=== PATIENT | male | born 1950 | race Caucasian/White ===

== ENCOUNTER 2020-01-19 12:30 | Outpatient (CLI) | payer MEDICARE, SELFPAY ==
[2020-01-19 13:48] LABS: Thyroid Stimulating Hormone Reflex 3.41 u/IU/mL (0.36-3.74)
== END 2020-01-19 12:31 | disposition home or self-care (01) ==
LOC: CHSLAB 12:34
PROVIDERS: PCP Family Medicine; Visit Provider Family Medicine
DX: E78.5 Hyperlipidemia, unspecified (principal)
CPT/HCPCS: 36415; 84443

== ENCOUNTER 2020-03-22 09:49 | Outpatient (CLI) | payer MEDICARE, SELFPAY | END 2020-03-22 09:50 | disposition home or self-care (01) | LOC: CHSLAB 09:54 | PROVIDERS: PCP Family Medicine; Visit Provider Specialist | DX: C44.311 Basal cell carcinoma of skin of nose (principal) | CPT/HCPCS: 88305 ==

== ENCOUNTER 2020-12-20 11:12 | Outpatient (CLI) | payer MEDICARE, SELFPAY | END 2020-12-20 11:13 | disposition home or self-care (01) | LOC: CHSLAB 11:16 | PROVIDERS: PCP Family Medicine; Visit Provider Specialist | DX: B07.8 Other viral warts (principal) | CPT/HCPCS: 88305 ==

== ENCOUNTER 2021-03-21 10:24 | Outpatient (CLI) | payer MEDICARE, SELFPAY | END 2021-03-21 10:25 | disposition home or self-care (01) | PROVIDERS: PCP Family Medicine; Visit Provider Specialist | DX: L57.0 Actinic keratosis (principal) | CPT/HCPCS: 88305; 88342 ==

== ENCOUNTER 2021-04-19 08:54 | Outpatient (CLI) | payer MEDICARE, SELFPAY ==
[2021-04-19 09:10] LABS: Hematocrit 44.9 % (37.0-46.0); Hemoglobin 15.4 g/dL (12.4-15.3); Mean Corpuscular HGB Conc 34.3 g/dL (32.0-36.0); Mean Corpuscular Hemoglobin 33.3 pg (27.0-31.0); Mean Platelet Volume 9.6 fl (8.7-11.0); Platelet Count Result 208 K/mm3 (150-420); Red Blood Count 4.63 M/mm3 (4.70-6.10); Red Cell Distribution Width 11.9 % (11.6-14.4); White Blood Count 6.1 K/mm3 (4.8-10.8)
[2021-04-19 09:50] LABS: Anion Gap 13 mmol/L (8-16); Blood Urea Nitrogen 15 mg/dL (7-18); Carbon Dioxide 24 mmol/L (21-32); Chloride 103 mmol/L (98-108); Potassium 4.2 mmol/L (3.5-5.1); Sodium 140 mmol/L (136-145)
[2021-04-19 09:51] LABS: Alanine Aminotransferase 52 U/L (16-63); Albumin Level 3.8 g/dL (3.4-5.0); Alkaline Phosphatase 79 U/L (46-116); Aspartate Amino Transferase 45 U/L (15-37); Bilirubin,Total 2.4 mg/dL (0.00-1.00); Calcium 8.5 mg/dL (8.5-10.1); Cholesterol 144 mg/dL (0-200); Estimated Glomerular Filt Rate > 60; Glucose 107 mg/dL (70-99); HDL Direct 55 mg/dL (40-60); LDL Cholesterol Calculated 72 mg/dL (<130); Osmolality Calculated 290 mOsm/kg (285-295); Triglycerides 84 mg/dL (0-150)
[2021-04-19 09:52] LABS: Thyroid Stimulating Hormone Reflex 5.29 u/IU/mL (0.36-3.74)
[2021-04-19 09:53] LABS: Free T4 Free Thyroxine Reflex 1.08 ng/dL (0.76-1.46)
== END 2021-04-19 08:55 | disposition home or self-care (01) ==
LOC: CHSLAB 08:56
PROVIDERS: PCP Family Medicine; Visit Provider Family Medicine
DX: I10 Essential (primary) hypertension (principal); E11.9 Type 2 diabetes mellitus without complications
CPT/HCPCS: 36415; 80053; 80061; 84439; 84443; 85027

== ENCOUNTER 2021-06-20 08:12 | Outpatient (CLI) | payer MEDICARE, SELFPAY ==
[2021-06-20 09:23] LABS: Thyroid Stimulating Hormone 4.87 uIU/mL (0.36-3.74)
== END 2021-06-20 08:13 | disposition home or self-care (01) ==
LOC: CHSLAB 08:15
PROVIDERS: PCP Family Medicine; Visit Provider Family Medicine
DX: E03.9 Hypothyroidism, unspecified (principal)
CPT/HCPCS: 36415; 84443

== ENCOUNTER 2021-08-31 08:33 | Outpatient (CLI) | payer MEDICARE, SELFPAY ==
[2021-08-31 10:52] LABS: Thyroid Stimulating Hormone 1.93 uIU/mL (0.36-3.74)
== END 2021-08-31 08:34 | disposition home or self-care (01) ==
LOC: CHSLAB 08:36
PROVIDERS: PCP Family Medicine; Visit Provider Family Medicine
DX: E03.9 Hypothyroidism, unspecified (principal)
CPT/HCPCS: 36415; 84443

== ENCOUNTER 2022-07-04 10:08 | Outpatient (CLI) | payer MEDICARE, SELFPAY ==
[2022-07-04 10:52] LABS: Hemoglobin 14.8 g/dL (12.4-15.3); Mean Corpuscular HGB Conc 34.4 g/dL (32.0-36.0); Mean Corpuscular Hemoglobin 33.6 pg (27.0-31.0); Mean Corpuscular Volume 97.7 fL (78.0-102.0); Mean Platelet Volume 9.9 fl (8.7-11.0); Platelet Count Result 207 K/mm3 (150-420); Red Cell Distribution Width 11.9 % (11.6-14.4)
[2022-07-04 11:17] LABS: Alanine Aminotransferase 34 U/L (16-63); Albumin Level 3.8 g/dL (3.4-5.0); Alkaline Phosphatase 71 U/L (46-116); Anion Gap 7 mmol/L (8-16); Aspartate Amino Transferase 20 U/L (15-37); Bilirubin,Total 1.6 mg/dL (0.00-1.00); Blood Urea Nitrogen 21 mg/dL (7-18); Calcium 8.5 mg/dL (8.5-10.1); Carbon Dioxide 28 mmol/L (21-32); Chloride 103 mmol/L (98-108); Cholesterol 165 mg/dL (0-200); Estimated Glomerular Filt Rate > 60; Glucose 121 mg/dL (70-99); HDL Direct 56 mg/dL (40-60); LDL Cholesterol Calculated 92 mg/dL (<130); Osmolality Calculated 290 mOsm/kg (285-295); Prostate Specific Antigen 0.7 ng/mL (< OR = 4.0); Sodium 138 mmol/L (136-145); Total Protein 6.9 g/dL (6.4-8.2); Triglycerides 83 mg/dL (0-150)
== END 2022-07-04 10:09 | disposition home or self-care (01) ==
LOC: CHSLAB 10:13
PROVIDERS: PCP Family Medicine; Visit Provider Family Medicine
DX: R35.1 Nocturia (principal); E78.5 Hyperlipidemia, unspecified; E11.9 Type 2 diabetes mellitus without complications; E03.9 Hypothyroidism, unspecified; I10 Essential (primary) hypertension; Z12.5 Encounter for screening for malignant neoplasm of prostate
CPT/HCPCS: 36415; 80053; 80061; 84153; 84443; 85027; G0103

== ENCOUNTER 2023-07-08 09:44 | Outpatient (CLI) | payer MEDICARE, SELFPAY ==
[2023-07-08 10:00] LABS: Basophils Absolute Auto 0.04 K/mm3 (0.00-0.10); Basophils Percent Auto 0.6 % (0.0-1.0); Eosinophils Absolute Auto 0.15 K/mm3 (0.02-0.50); Eosinophils Percent Auto 2.1 % (1.0-6.0); Hematocrit 46.9 % (37.0-46.0); Hemoglobin 16.2 g/dL (12.4-15.3); Immature Granulocyte Absolute 0.02 K/mm3 (0.00-0.00); Immature Granulocyte Percent A 0.3 % (0.0-0.0); Lymphocytes Absolute Auto 1.79 K/mm3 (1.10-4.50); Lymphocytes Percent Auto 25.1 % (18.0-42.0); Mean Corpuscular HGB Conc 34.5 g/dL (32.0-36.0); Mean Corpuscular Volume 95.5 fL (78.0-102.0); Mean Platelet Volume 9.5 fl (8.7-11.0); Monocytes Absolute Auto 0.77 K/mm3 (0.10-0.90); Monocytes Percent Auto 10.8 % (2.0-11.0); Neutrophils Absolute Auto 4.4 K/mm3 (1.7-7.2); Neutrophils Percent Auto 61.1 % (50.0-70.0); Platelet Count Result 221 K/mm3 (150-420); Red Blood Count 4.91 M/mm3 (4.70-6.10); White Blood Count 7.1 K/mm3 (4.8-10.8)
[2023-07-08 10:35] LABS: Thyroid Stimulating Hormone Reflex 2.68 u/IU/mL (0.36-3.74)
[2023-07-08 10:37] LABS: Alanine Aminotransferase 34 U/L (16-63); Alkaline Phosphatase 70 U/L (46-116); Anion Gap 10 mmol/L (8-16); Aspartate Amino Transferase 27 U/L (15-37); Bilirubin,Total 2.9 mg/dL (0.00-1.00); Blood Urea Nitrogen 18 mg/dL (7-18); Calcium 8.8 mg/dL (8.5-10.1); Carbon Dioxide 29 mmol/L (21-32); Chloride 101 mmol/L (98-108); Cholesterol 163 mg/dL (0-200); Estimated Glomerular Filt Rate > 60; Glucose 127 mg/dL (70-99); HDL Direct 60 mg/dL (40-60); LDL Cholesterol Calculated 85 mg/dL (<130); Osmolality Calculated 293 mOsm/kg (285-295); Potassium 3.8 mmol/L (3.5-5.1); Prostate Specific Antigen 0.8 ng/mL (< OR = 4.0); Sodium 140 mmol/L (136-145); Total Protein 7.7 g/dL (6.4-8.2); Triglycerides 89 mg/dL (0-150)
== END 2023-07-08 09:45 | disposition home or self-care (01) ==
LOC: CHSLAB 09:48
PROVIDERS: PCP Family Medicine; Visit Provider Family Medicine
DX: R35.1 Nocturia (principal); E11.9 Type 2 diabetes mellitus without complications; E03.9 Hypothyroidism, unspecified; I10 Essential (primary) hypertension; Z12.5 Encounter for screening for malignant neoplasm of prostate
CPT/HCPCS: 36415; 80053; 80061; 83036; 84153; 84443; 85025; G0103

== ENCOUNTER 2024-07-22 10:41 | Outpatient (CLI) | payer MEDICARE, SELFPAY ==
[2024-07-22 10:59] LABS: Hematocrit 46.1 % (37.0-46.0); Hemoglobin 15.3 g/dL (12.4-15.3); Mean Corpuscular HGB Conc 33.2 g/dL (32-36); Mean Corpuscular Hemoglobin 31.9 pg (27.0-31.0); Mean Corpuscular Volume 96.2 fL (78.0-102.0); Mean Platelet Volume 9.2 fl (8.7-11.0); Platelet Count Result 222 K/mm3 (150-420); Red Blood Count 4.79 M/mm3 (4.70-6.10); Red Cell Distribution Width 11.9 % (11.6-14.4); White Blood Count 5.3 K/mm3 (4.8-10.8)
[2024-07-22 12:08] LABS: Band Neutrophils Percent 0 % (0-6); Lymphocytes Absolute Manual 1.11 K/mm3 (1.1-4.5); Lymphocytes Percent Manual 21 % (18-44); Monocytes Absolute Manual 0.84 K/mm3 (0.1-0.90); Monocytes Percent Manual 16 % (3-9); Neutrophils Absolute Manual 3.23 K/mm3 (1.3-6.7); Neutrophils Percent Manual 61 % (46-73); Total Cells Counted 100
[2024-07-22 12:09] LABS: Platelet Estimate Adequate (Adequate)
--- OUTSIDE RECORDS SUMMARY | 2024-07-22 12:16 | XMS_ITS | Clinical Summary ---
Author Organization [facility] Address [address] [place] [address] Care Team Providers Care Stage Director Name Role Phone Ha العراقي MD Unavailable Unavailabl e Allergies No known active allergies Medications atorvastatin 20 MG tablet Take 20 mg by mouth daily. Active levothyroxine 75 MCG tablet Take 75 mcg by mouth daily. Active aspirin 81 MG chewable tablet Chew 81 mg by mouth daily. Active chlorthalidone 25 MG tablet 07/08/2017 Active metoprolol tartrate 25 MG tablet 07/08/2017 Active Active Problems Problem Noted Date Diagnosed Date Precordial pain 03/03/2016 Essential hypertension 03/03/2016 Mixed hyperlipidemia 03/03/2016 Hypothyroidism Hyperlipidemia HTN (hypertension) Esophageal reflux Chest pain Family History Relation Status Comments Father Mother Social History Tobacco Use Types Packs/Day Years Used Date Smoking Tobacco: Former Cigars Smokeless Tobacco: Never Tobacco Cessation:Counseling Given: No Alcohol Use Standard Drinks/Week Comments No 0 (1 standard drink = 0.6 oz pur e alcohol) Sex and Gender Information Value Date Recorded Sex Assigned at Not on file Legal Sex Male 1:53 PM CDT Gender Identity Not on file Sexual Orientation Not on file Last Filed Vital Signs Vital Sign Reading Time Taken Comments Blood Pressure 154/78 12/17/2019 11:32 AM CDT Pulse 62 12/17/2019 11:32 AM CDT Temperature - - Respiratory Rate 16 12/17/2019 11:32 AM CDT Oxygen Saturation 97% 12/17/2019 11:32 AM CDT Inhaled Oxygen Concentration - - Weight 101.2 kg (223 lb) 12/17/2019 11:32 AM CDT Height 175.3 cm (5' 9 ) 12/17/2019 11:32 AM CDT Body Mass Index 32.93 12/17/2019 11:32 AM CDT Plan of Treatment Health Maintenance Due Date Last Done Comments Colorectal Cancer Screening Colonoscopy (10 Years) 1950 Hepatitis C 1968 DTaP, Tdap and Td Vaccines ( 1 - Tdap) 1969 Zoster Vaccines (1 of 2) 2000 AAA SCREENING 11/06/2015 Annual Medicare Wellness Visit 11/06/2015 Pneumococcal Vaccine: 65+ Ye ars (1 of 1 - PCV) 11/06/2015 COVID-19 Vaccine (1 - 2023-2 5 season) 2024 Influenza Adult (#1) 2024 RSV Immunization or 60+ Years (1 - 1-dose 75+ series) 2025 Meningococcal B Vaccine Aged Out No l onger eligible based on patient's age to complete this topic Meningococcal Vaccine Aged Out No romeo odalys eligible based on patient's age to complete this topic RSV Immunizations Under 20 Months Aged Out No longer eligible based on patient's age to complete this topic Insurance [employer] [place] Care Teams Stage Director Relationship Specialty Start Date End Date Ha العراقي MD [place] Rn Liaison CARDIOVASCULAR DISEASE 01/10/16
[2024-07-22 23:50] LABS: Alanine Aminotransferase 36 U/L (16-63); Albumin Level 4.2 g/dL (3.4-5.0); Alkaline Phosphatase 104 U/L (46-116); Anion Gap 10 mmol/L (4-12); Aspartate Amino Transferase 29 U/L (15-37); Bilirubin,Total 2.6 mg/dL (0.00-1.00); Blood Urea Nitrogen 20 mg/dL (7-18); Calcium 9.1 mg/dL (8.5-10.1); Carbon Dioxide 28 mmol/L (21-32); Chloride 101 mmol/L (98-108); Cholesterol 134 mg/dL (0-200); Estimated Glomerular Filt Rate > 60; Glucose 118 mg/dL (70-99); HDL Direct 59 mg/dL (40-60); LDL Cholesterol Calculated 61 mg/dL (<130); Osmolality Calculated 291 mOsm/kg (285-295); Potassium 3.7 mmol/L (3.5-5.1); Sodium 139 mmol/L (136-145); Total Protein 7.6 g/dL (6.4-8.2); Triglycerides 70 mg/dL (0-150)
== END 2024-07-22 10:42 | disposition home or self-care (01) ==
LOC: CHSLAB 10:44
PROVIDERS: PCP Family Medicine; Visit Provider Family Medicine
DX: E03.9 Hypothyroidism, unspecified (principal); I10 Essential (primary) hypertension
CPT/HCPCS: 36415; 80053; 80061; 84443; 85025

== ENCOUNTER 2024-07-27 09:48 | Outpatient (CLI) | payer MEDICARE, SELFPAY ==
--- NOTE | ~2024-07-27 | CT_ITS ---
CT Scan of the Chest without Contrast: Clinical Indication: Lung cancer screening, nicotine dependence Technique: Contiguous sections were acquired throughout the chest without intravenous contrast. Dose reduction technique was used on this scan by utilizing automated exposure control and iterative recon struction technique. The dose-length product (DLP) was 206.06 mGy-cm. Findings: There is no evidence of any significant mediastinal, hilar or axillary lymphadenopathy. Coronary joelle ry calcifications present. There is no evidence of pleural or pericardial effusion. The lungs are clear. No pulmonary nodules or infiltrates are noted. Images through the upper abdomen reveal no abnormalities. Impression: Lung RADS 1: Negative. 12 month follow-up screening CT advised. Reviewed, dictated and finalized at location . Impression: Lung RADS 1: Negative. 12 month follow-up screening CT advised.
--- NOTE | ~2024-07-27 | CT_ITS ---
CT sinus wo con Ordering provider: Terrence Rooney DO History: . Chronic nasal sinusitis w/ drainage . Comparison: None. Technique: Thin slice Scans CT of the paranasal sinuses was performed with coronal and sagittal refor matted images. No IV contrast. . Automated exposure control and iterative reconstruction technique w ere employed. The dose-length product was 206.06 mGy-cm. Findings: NASAL SEPTUM: Right nasal septal deviation. OSTEOMEATAL UNITS: The right is patent. The left is obliterated. NASAL TURBINATES AND NASOPHARYNX: 3.2 x 3.8 cm Soft tissue density suggestive of a mass seen in the l eft nasal cavity which may be a polyp. Clinical evaluation advised. PARANASAL SINUSES: Bilateral maxillary sinus disease. VISUALIZED MASTOIDS: Normal as visualized. BONES: Normal. SUPERFICIAL SOFT TISSUES/VISUALIZED BRAIN PARENCHYMA: Normal. IMPRESSION: Left nasal mass or a large polyp. Further evaluation advised. Bilateral maxillary sinus disease. Reviewed, dictated and finalized at location A.
--- OUTSIDE RECORDS SUMMARY | 2024-07-27 11:13 | XMS_ITS | Clinical Summary ---
Author Organization [facility] Address [address] [place] [address] Care Team Providers Care Line Analyst Name Role Phone Ha العراقي MD Unavailable [...] to complete this topic Insurance [employer] [place] Care Teams Line Analyst Relationship Specialty Start Date End Date Ha العراقي MD [place] Metal Forger'S Assistant CARDIOVASCULAR DISEASE 01/10/16
== END 2024-07-27 09:49 | disposition home or self-care (01) ==
LOC: CHSIMG 09:49
PROVIDERS: PCP Family Medicine; Visit Provider Family Medicine
DX: Z12.2 Encounter for screening for malignant neoplasm of respiratory organs (principal); Z87.891 Personal history of nicotine dependence; J34.9 Unspecified disorder of nose and nasal sinuses; J32.0 Chronic maxillary sinusitis
CPT/HCPCS: 70486; 71271

== ENCOUNTER 2024-11-25 10:37 | Outpatient (CLI) | payer MEDICARE, SELFPAY ==
--- OUTSIDE RECORDS SUMMARY | 2024-11-25 10:40 | XMS_ITS | Clinical Summary ---
Author Organization [facility] Address [address] [place] [address] Care Team Providers Care Glost Tile Shader Name Role Phone Ha العراقي MD Unavailable [phone] Allergies No known active allergies Medications atorvastatin [...] 11:32 AM CDT Height 175.3 cm (5' 9) 12/17/2019 11:32 AM CDT Body Mass Index 32.93 12/17/2019 11:32 AM CDT Plan of Treatment Health Maintenance Due Date Last Done Comments Colorectal Cancer Screening Colonoscopy (10 Years) 1950 Hepatitis C 1968 DTaP, Tdap and Td Vaccines ( 1 - Tdap) 1969 Pneumococcal Vaccine: 50+ Ye ars (1 of 1 - PCV) 2000 Zoster Vaccines (1 of 2) 2000 AAA SCREENING 11/06/2015 Annual Medicare Wellness Visit 11/06/2015 COVID-19 Vaccine (1 - 2023-2 5 season) 2024 RSV Immunization or 60+ Years (1 [...] to complete this topic Insurance [employer] Care Teams Glost Tile Shader Relationship Specialty Start Date End Date Ha العراقي MD [address] [place] [address] Ethel Billing Supervisor CARDIOVASCULAR DISEASE 01/10/16
--- NOTE | 2024-11-25 10:45 | ECG_ITS ---
Test Date: 2024-11-25 10:58:13 Measurements Intervals Douglas Rate: 53 P: 36 TN: 198 QRS: -12 QRSD: 101 T: -4 QT: 445 QTc: 421 Interpretive Statements SINUS BRADYCARDIA POSSIBLE LEFT ATRIAL ENLARGEMENT [-0.1mV P WAVE IN V1/V2] No previous ECG available for comparison Electronically Signed On 11-25-2024 14:41:28 CDT by Hero Adam M.D.
[2024-11-25 11:37] LABS: Anion Gap 11 mmol/L (4-12); Blood Urea Nitrogen 18 mg/dL (9-20); Calcium 9.0 mg/dL (8.4-10.2); Carbon Dioxide 24 mmol/L (22-30); Chloride 103 mmol/L (98-107); Estimated Glomerular Filt Rate > 60; Glucose 118 mg/dL (65-110); Potassium 4.0 mmol/L (3.4-5.0); Sodium 138 mmol/L (137-145)
== END 2024-11-25 10:38 | disposition home or self-care (01) ==
LOC: ANHSURGERY 10:38
PROVIDERS: Anesthesiology; PCP Family Medicine; Visit Provider Otolaryngology
DX: Z01.818 Encounter for other preprocedural examination (principal); R00.1 Bradycardia, unspecified; I10 Essential (primary) hypertension
CPT/HCPCS: 36415; 80048; 93005

== ENCOUNTER 2024-11-30 00:02 | Day surgery (SDC) | payer MEDICARE, SELFPAY ==
--- NOTE | 2024-11-19 10:31 | PC.NURSE ---
Report to the Outpatient Waiting Room, entrance under the green pavilion located off [facility], at time _10 AM on date __11/30/24 . Planned Procedure Time: __1200 NOON .? Time changes happen often and if your time is changed the preop area will call you the afternoon before. - You and your visitor will be asked to self-screen and do not enter if you have any COVID symptoms. Please call surgeon if you need to reschedule. - A mask is optional within the hospital at this time. Patients may have clear liquids (water, carbonated beverages, clear teas, apple juice) until 3 hours prior to surgery ( 9 AM ) with a maximum of 20 ounces. - No food from midnight until time of surgery and no smoking, or chewing tobacco (or any form of nicotine). No chewing gum, candy or mints. - Take only the following medications with a SIP of water on the morning of surgery: __LEVOTHYROXINE,METOPROLOL DO NOT STOP ANY OF YOUR OTHER PRESCRIPTION MEDICATIONS PRIOR TO SURGERY EXCEPT THE FOLLOWING Hold all vitamins and supplements for 3 days per anesthesiologist. Medications to discontinue per physician ASPIRIN PER DR BARRIOS Please no make-up, nail slovak, hairspray, perfume, deodorant, or body powder the day of surgery.? No jewelry (including any body piercings) or valuables the day of surgery, leave them at home.? Please take a shower or bath the night before, or the morning of, surgery with an antibacterial soap.? Wear comfortable, loose fitting clothing.? Children are encouraged to wear pajamas. - Jewelry must be removed prior to entering the operating room.? Rings and piercings that are not removed may be cut off. - The hospital will not accept responsibility for valuables.? - Please leave all valuables, including medications, at home the day of surgery. If you are going home after surgery, a licensed charter driver must drive you home.? - NO public transportation without another adult if you receive anesthesia. - We recommend that an adult stay with you for 24 hours following discharge. - We also recommend that you do not drive, make important decision, drink alcoholic beverages, or take any drugs that were not prescribed by your health care provider for at least 24 hours after your discharge time. Follow any additional instructions given to you from your surgeon. Telephone instructions given to ___PATIENT and asked if any additional questions and then verbalized understanding. Patient advised to call surgeon office or pre surgery nurse liaison [phone] if any additional questions.
[2024-11-19 10:47] VITALS: BMI 31.7
[2024-11-30] VITALS (10 sets, daily range): BP systolic 142–169; BP diastolic 72–89; PULSE 51–83; RESP 12–18; TEMP 36.5–36.6; O2SAT 96–100
--- OUTSIDE RECORDS SUMMARY | 2024-11-30 00:05 | XMS_ITS | Clinical Summary ---
Author Organization [facility] Address [address] [place] [address] Care Team Providers Care Student Outreach Coordinator Name Role Phone Ha العراقي MD Unavailable [phone] Allergies No known active allergies Medications atorvastatin [...] topic Insurance [employer] Care Teams Student Outreach Coordinator Relationship Specialty Start Date End Date Ha العراقي MD [address] [place] [address] Harper Filter Cleaner CARDIOVASCULAR DISEASE 01/10/16
--- OUTSIDE RECORDS SUMMARY | 2024-11-30 00:05 | XMS_ITS | Continuity of Care Document ---
Author Organization [facility] Address [address] [place] [address] Phone Care Team Providers Care Cardiac Rehabilitation Program Director Name Role Phone Orion Falcon DO Unavailable Unavailable Advance Directives Directive Yes / No Effective Date File Name No Information Encounters Encounter Description Practice Location Reason(s) For Visit Diagnoses Date Provider Providers Copied on Encounter [facility], [address] [place], [place], [address], [place] tel:[phone] [facility] No Information Ezekiel Ruiz. [address] [facility], [address], [place], [address], [place]. tel:[phone] Family History Family Member Type Diagnosis Age At Onset No Information Payers Payer name Insurance type Covered democrat ID Authoriza tion(s) No Information Social History Type Description Quantity Date Captured Comments Sex Male Smoking Status No Information Chief Complaint And Reason For Visit No Information History Of Present Illness Encounter Date Complaint History Of Prese nt Illness No Information Instructions Date Instruction Additional Infor mation No Information Assessments Type Assessment Date No Information
[2024-11-30] MEDS: LACTATED RINGERS 1,000 ML 30 ML IV CONT ×2 (10:05→14:13)
--- NOTE | 2024-11-30 10:38 | P.PNAN_ITS ---
Anes - Initial Pre Proc Eval Procedure: Operation Date: 11/30/24 12:00 Proposed Procedures p Image Guided Endoscope Left Sided Middle Turbinectomy, Inferior Turbinate Reduction with Outfracture, Excision of Soft Body Nasal Tumor - Tayo Mccormack MD s Endoscopic Assisted Septoplasty - Tayo Mccormack MD Date/Time: 11/30/24 10:38 Surgeon: Tayo Mccormack MD Pre Op Diagnosis: nasal polyps/tumor, dev septum Patient Data Age: 74 Gender: M Height: 1.75 m Weight: 96.8 kg Allergies Allergy/AdvReac Type Severity Reaction Status Date / Time No Known Allergies Allergy Verified 11/19/24 10:30 Home Medications ?Medication ?Instructions ?Recorded ?Confirmed ?Type aspirin 81 mg tablet,delayed 81 mg PO DAILY 01/18/20 11/30/24 History release (Adult Low Dose Aspirin) atorvastatin 20 mg tablet See Rx Instructions .Route 07/22/24 11/30/24 Rx .COMPLEX #90 tabs chlorthalidone 25 mg tablet See Rx Instructions .Route 07/22/24 11/30/24 Rx .COMPLEX #90 tabs levothyroxine 150 mcg tablet See Rx Instructions .Route 07/22/24 11/30/24 Rx .COMPLEX #90 tabs metoprolol tartrate 25 mg tablet See Rx Instructions .Route 07/22/24 11/30/24 Rx .COMPLEX #180 tabs budesonide 0.25 mg/2 mL suspension 0.25 mg (2 mL) irrigation BID #120 09/14/24 11/30/24 Rx for nebulization mL Patient hx anesthesia problems: none Family hx anesthesia problems: none Results Review: All pre-operative results and documents have been reviewed as part of the pre- operative evaluation. [facility] Past Medical History Medical History Chronic sinusitis Overweight Hypothyroidism Hypertension Hyperlipidemia Surgical History Surgical History No history of previous surgery Family History Family History Mother Heart disease Father Lung cancer Social History Social History Smoking packs per day: 1 Smoking cigarettes per day: 20.0 Years smoked: 14 Smoking pack-years: 14.00 Smoking status: Former smoker Tobacco type: cigarettes Smoking end date: 05/20/79 Additional smoking assessment comments: SMOKED 2 CIGARS/DAY QUIT 2014 Alcohol intake: current Drinks per week: 16 Alcohol use details: BEER Substance use: never Living arrangements: with family Additional living arrangements comments: . 2 adult children. Occupation/Education: retired Additional occupation/education comments: Prior Occupation: [employer] Spiritual care concerns: No Anes - Eval Final PreProcedure Day of Procedure 11/30/24 10:38 Patient weight: obese Heart: regular rate and rhythm Lungs: clear to auscultation Airway: Mallampati scale class III Neurological: alert and oriented Last oral intake: >/= 8 hours ASA classification: III Emergent: no Anesthetic plan: proceed Anesthesia type and monitoring: general ETT and standard monitoring Results Review: All pre-operative results and documents have been reviewed as part of the pre- operative evaluation. Informed Consent: The patient's anesthetic plan and its attendant risks and benefits were discussed with the patient/family/POA. Questions were solicited and answers provided to the satisfaction of the patient/family/POA.
[2024-11-30] MEDS: ACETAMINOPHEN 500 MG TABLET 1000 MG PO (10:41)
--- NOTE | 2024-11-30 11:36 | WPDHPUPDATE1 ---
History and Physical Update Update Date/Time: 11/30/24 11:36 History and Physical has been reviewed, including an updated exam of the patient. There are NO changes in the patient's condition. Risks, benefits, and alternatives have been discussed and questions answered. Patient agrees to proceed with procedure.
--- NOTE | 2024-11-30 11:48 | P.HP_ITS ---
H&P: HPI History of Present Illness Date/Time: 11/30/24 11:48 Chief Complaint: Nasal obstruction, ct with left middle turbinate soft body tumor Review of Systems Review of Systems: All systems reviewed & are unremarkable except as noted in HPI and below [facility] Past Medical History Medical History Chronic sinusitis Overweight Hypothyroidism Hypertension Hyperlipidemia Surgical History Surgical History No history of previous surgery Family History Family History Mother Heart disease Father Lung cancer Social History Social History Smoking packs per day: 1 Smoking cigarettes per day: 20.0 Years smoked: 14 Smoking pack-years: 14.00 Smoking status: Former smoker Tobacco type: cigarettes Smoking end date: 05/20/79 Additional smoking assessment comments: SMOKED 2 CIGARS/DAY QUIT 2014 Alcohol intake: current Drinks per week: 16 Alcohol use details: BEER Substance use: never Living arrangements: with family Additional living arrangements comments: . 2 adult children. Occupation/Education: retired Additional occupation/education comments: Prior Occupation: [employer] Spiritual care concerns: No Meds Home Medications and Allergies Home Medications ?Medication ?Instructions ?Recorded ?Confirmed ?Type aspirin 81 mg tablet,delayed 81 mg PO DAILY 01/18/20 11/30/24 History release (Adult Low Dose Aspirin) atorvastatin 20 mg tablet See Rx Instructions .Route 07/22/24 11/30/24 Rx .COMPLEX #90 tabs chlorthalidone 25 mg tablet See Rx Instructions .Route 07/22/24 11/30/24 Rx .COMPLEX #90 tabs levothyroxine 150 mcg tablet See Rx Instructions .Route 07/22/24 11/30/24 Rx .COMPLEX #90 tabs metoprolol tartrate 25 mg tablet See Rx Instructions .Route 07/22/24 11/30/24 Rx .COMPLEX #180 tabs budesonide 0.25 mg/2 mL suspension 0.25 mg (2 mL) irrigation BID #120 09/14/24 11/30/24 Rx for nebulization mL Allergies Allergy/AdvReac Type Severity Reaction Status Date / Time No Known Allergies Allergy Verified 07/03/25 10:30 Vital Signs Vital Signs - 24 hr 11/30/24 09:57 Temperature 36.5 C Pulse Rate 83 Respiratory Rate 18 Blood Pressure 169/72 H Pulse Oximetry 98 Oxygen Delivery Room Air Exam Narrative: Turbinate hypertrophy, septal deviation, left middle turbinate soft body tumor Assessment and Plan Assessment and plan (1) Nasal septal deviation: Code(s): J34.2 - Deviated nasal septum Status: Acute Assessment and Plan: See previous documentation for risks discussed. Plan OR for image guided endoscopic left middle turbinate reduction/soft body tumor resection. Septopla sty. Bilateral inferior turbinate reduction with outfracture. 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
[2024-11-30] MEDS: ceFAZolin 2 GM in SODIUM CHLORIDE 0.9% IV 50 ML 100 ML IVPB (12:11)
--- NOTE | 2024-11-30 12:46 | S_PTH ---
PATIENT: Ha Bruno LOC: [facility] U#:[id number] AGE/SX: 74/M ROOM: RE11/30/[address]: Tayo Mccormack MD : 1950 BED: DIS: 11/30/2024 SPEC #: [id number] RECD: 11/30/24 12:53 STATUS: RAJIV REQ #: [id number] LULU: 11/30/24 12:[address]: Tayo Mccormack DEPT: [facility] Surgical RECD BY: Ashley Almonte ENTERED: 11/30/24 12:55 SP TYPE: Surgical OTHR DR: Terrence Rooney DO Tissues: A - Frozen Section B - Biopsy Procedures: Hematoxylin and Eosin Stain Frozen Section Gross and Microscopic Level 4
[2024-11-30] MEDS: LIDO 1%/EPINEPHRINE 1:100,000 50 ML VIAL INFILTRATE (12:55)
[2024-11-30] MEDS: OXYMETAZOLINE HCL 0.05% NAS 15 ML BTL (*BKC) 1 SPRAY NASAL (12:57)
[2024-11-30] MEDS: MUPIROCIN 2% OINT 22 GM TUBE 1 APPLIC EACH NARE (12:59)
--- NOTE | 2024-11-30 13:00 | SUR.OPER ---
Frozen section specimen sent with JEF Daley and received in pathology by Ashley
--- NOTE | 2024-11-30 14:44 | P.OP_ITS ---
Procedure Note - Detailed Date of Procedure 11/30/24 Pre-op Diagnosis nasal polyps/tumor, dev septum, nasal obstruction, nasal congestion Post-op Diagnosis Same Procedure Performed 1. Endoscopic polypectomy, 2. Endoscopic assisted septoplasty, 3. Bilateral inferior turbinate reduction with outfracture Surgeon Tayo Mccormack MD Anesthesia General Indications See above Findings Pretty bad polyposis bilaterally from the skull base we did intraoperative consultation pathology to ensure there just inflammatory polyps. Right septal deviation turbinate hypertrophy all corrected bleeding about 35 cc. No obvious complication. Description of Procedure Patient identified consent verified preoperative holding area. Patient brought to the operating room. Time-out performed. General anesthesia induced endotracheal tube secured airway. Patient prepped draped position procedure confirmed 2nd time-out performed. Image guidance initiated confirmed. Left- sided polypectomy performed up to the skull base middle turbinate was intact attention is then turned to the right-sided polypectomy performed this was all done with image guided tri cut microdebrider. Afrin-soaked pledgets placed against the polyp stumps on the skull base. Intraoperative pathology came back frozen section showed normal inflammatory polyps. Inferior turbinates reduced in the submucosal plane after being injected with 1 cc of lidocaine each they were then outfractured Winkler elevator. Total 13 cc 1% lidocaine with 1 100,000 parts of an unchanged injected the bilateral nasal septum. [place] incision made left-sided right the left nasal septal flap elevated with 7 [place] Island[place] suction. Osteotome utilized to cross over. Right nasal septal flap elevated. Deviated septum removed Jabier forceps [place] Ramsay forceps osteotome. Septum washed out. [place] incision closed with 4 interrupted 5 0 fast gut sutures. Ivory splints placed sutured anteriorly with a 3-0 mattress nylon suture. Total blood loss 35 cc. I performed all dictated portions procedure no complication care the patient back to Anesthesiology patient taken to PACU. FloSeal was placed against the polyps as well as Nova pack. Patient tolerated everything well. Estimated Blood Loss 35 Drains No Packing Yes (No pack) Pathology Yes Complications No immediate complications Condition Stable Disposition PACU [facility] Billing Surgery - Charge Forward: Surgery Billing
[2024-11-30] MEDS: oxyCODONE HCL (*CRX) 5 MG TAB IR PO (15:36)
--- NOTE | 2024-11-30 16:16 | SUR.PHASEII ---
BAG OF 2 X 2'S AND PAPER TAPE GIVEN TO PATIENT.
== END 2024-11-30 16:21 | disposition home or self-care (01) ==
PROVIDERS: PCP Family Medicine; Visit Provider Otolaryngology
PROC: (CPT 30520; principal; 2024-11-30 12:00)
PROC: (CPT 30520; 2024-11-30 12:00)
DX: J33.8 Other polyp of sinus (principal); J33.9 Nasal polyp, unspecified; J35.3 Hypertrophy of tonsils with hypertrophy of adenoids; J35.2 Hypertrophy of adenoids; J34.89 Other specified disorders of nose and nasal sinuses; Z87.891 Personal history of nicotine dependence; E66.9 Obesity, unspecified; Z68.31 Body mass index [BMI] 31.0-31.9, adult
CPT/HCPCS: 30520; 30140; 31237; 61782; 88305; 88331; J0690; A9270; J2003; J2004; J2405; J2704; J3010; J7050; J7120

== ENCOUNTER 2025-05-03 13:35 | Outpatient (CLI) | payer MEDICARE, SELFPAY | END 2025-05-03 13:36 | disposition home or self-care (01) | LOC: CHSAUDIO 13:37 | PROVIDERS: PCP Family Medicine; Visit Provider Otolaryngology | DX: H90.3 Sensorineural hearing loss, bilateral (principal) | CPT/HCPCS: 92557; 92567 ==